=== PATIENT | male | born 1970 | race Caucasian/White ===

== ENCOUNTER 2019-07-25 08:49 | Inpatient (IN) | payer OTHER ==
[2019-07-25 10:31] VITALS: BMI 25.8
[2019-07-25] MEDS ORDERED: PROPOFOL 20 ML ONE ×6 (12:41→17:30)
[2019-07-25] MEDS ORDERED: ONDANSETRON 4 MG/2 ML VIAL ONE (12:41)
[2019-07-25] MEDS ORDERED: MIDAZOLAM HCL 2 MG/2 ML SINGLE DOSE VIAL ONE ×4 (12:41→13:26)
[2019-07-25] MEDS ORDERED: DEXAMETHASONE SOD PHOSPHATE 4 MG/1 ML VIAL ONE (12:41)
[2019-07-25] MEDS ORDERED: KETAMINE HCL 200 MG/20 ML VIAL ONE (12:42)
[2019-07-25] MEDS ORDERED: SUCCINYLCHOLINE CHLORIDE 200 MG/10 ML SYRINGE ONE (13:18)
[2019-07-25] MEDS ORDERED: ROCURONIUM BROMIDE 50 MG/5 ML SYRINGE ONE ×2 (13:18→15:54)
[2019-07-25] MEDS ORDERED: BUPIVACAINE LIPOSOME/PF (EXPAREL) 266 MG/20 ML VIAL ONE (13:23)
[2019-07-25] MEDS ORDERED: BUPIVACAINE HCL/PF 0.5% (5 MG/ML) 30 ML VIAL IJ ONE ×2 (13:24→14:05)
[2019-07-25] MEDS ORDERED: ERTAPENEM SODIUM 1 GM VIAL ONE (13:38)
[2019-07-25] MEDS ORDERED: THROMBIN (BOVINE) 5,000 UNIT VIAL TP ONE ×2 (14:09→16:12)
[2019-07-25] MEDS ORDERED: HEPARIN NA (PORCINE) 5,000 UNITS/ML 1ML VIAL ONE (14:09)
[2019-07-25] MEDS ORDERED: MORPHINE 5 MG/10 ML AMP - FOR COMPOUNDING USE ONLY ONE (14:25)
--- NOTE | 2019-07-25 14:36 | PN ---
Progress Note (short form) - Note Progress Note: 49M s/p L5-S1 posterior lumbar interbody fusion with instrumented postero- lateral arthrodesis POD #0. -Admit to ICU post-op. -Pain control: NO NSAID's; patient received pre-op TLIP block w/Exparel; OK to use CASE TECHNICIAN if needed; transition to oral analgesia post-op. -DVT PPx: -Mechanical only: PANTERA's, SCD's. -Chemical: None. -Incentive spirometry q15 min. -NPO until flatus. -Garcia care; d/c when ambulating. -Post-op Ancef x 3 doses. -PT/OT/Rehab, OOB. -WBAT B/L LE. -No bending, lifting (>5 lbs), or twisting for 9-12 months. -Care per ICU & medical hospitalist teams. -Discharge planning: f/u 7-10 days after rehab discharge at [facility] office; call for appointment; . -Will follow. Thomas Ford MD (Orthopaedic Surgery).
--- NOTE | 2019-07-25 14:46 | OP ---
Operative Note - Note: Operative Date: 07/25/19 Pre-Operative Diagnosis: 1. 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 2. L5-S1 spinal stenosis with neurogenic claudication. 3. L5-S1 axial instability with myofascial pain complex. Severity of illness: 4 Operation: 1. Bilateral laminectomies. 2. Bilateral L5, S1 osteotomies ( facetectomies). 3. L5-S1 discectomy. 4. L5-S1 posterior lumbar interbody fusion. 5. L5-S1 insertion biomechanical device. 6. L5-S1 posterior instrumentation. 7. L5-S1 posterolateral arthrodesis. 8. Bone allograft. 9. Bone autograft. 10. Bone marrow aspiration. 11. Complex wound closure (20cm). Findings: R L5 conjoined nerve root Implants: L5-S1 Cage: 11mm [id number]. Screws: 6.5mm x 40mm screws x 4 Post-Operative Diagnosis: Same as Pre-op Surgeon: Thomas Ford Air Technician: Louie Proctor Anesthesiologist/CLEAN UP HELPER BANQUET: Latonya Barnett Anesthesia: General Specimens Removed: L5-S1 disc Estimated Blood Loss (mls): 300 Drains & Tubes with Location: 1 x superficial HemoVac Blood Volume Replaced (mls): 125 (Cell Saver) Fluid Volume Replaced (mls): 2,000 (Crystalloid) Operative Report Dictated: Yes
[2019-07-25] MEDS ORDERED: ceFAZolin SODIUM 1 GM VIAL IVPB ONE ×2 (15:00→17:35)
[2019-07-25] MEDS ORDERED: fentaNYL CITRATE 250 MCG/5 ML VIAL ONE (15:04)
[2019-07-25] MEDS ORDERED: TRANEXAMIC ACID 1000 MG/10 ML VIAL ONE (15:23)
[2019-07-25] MEDS ORDERED: NEOSTIGMINE METHYLSULFATE 0.5 MG/1 ML - 10 ML MDV ONE (16:23)
[2019-07-25] MEDS ORDERED: GLYCOPYRROLATE 0.2 MG/1 ML VIAL ONE (16:23)
[2019-07-25] MEDS ORDERED: ceFAZolin SODIUM 1 GM VIAL ONE (17:38)
[2019-07-25] MEDS ORDERED: HYDROmorphone HCl 2 MG/ML VIAL ONE (18:06)
[2019-07-25] MEDS ORDERED: ONDANSETRON 4 MG/2 ML VIAL IVPUSH PRN (18:07)
[2019-07-25] MEDS ORDERED: diazePAM CARPU-JECT 10 MG/2 ML DISP.SYRIN IVPUSH PRN (18:07)
[2019-07-25] MEDS: LACTATED RINGERS SOLUTION 1,000 ML IV SCH ×2 (18:15→23:13)
--- NOTE | 2019-07-25 19:47 | SURG ---
Surgery Collar Baster Jumpbasting Note Collar Baster Jumpbasting: Louie Proctor PA-C Date of Service: 07/25/19 Diagnosis: 1. 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 2. L5-S1 spinal stenosis with neurogenic claudication. 3. L5-S1 axial instability with myofascial pain complex. Severity of illness: 4 Procedure: 1. Bilateral laminectomies. 2. Bilateral L5, S1 osteotomies (facetectomies). 3. L5-S1 discectomy. 4. L5-S1 posterior lumbar interbody fusion. 5. L5-S1 insertion biomechanical device. 6. L5-S1 posterior instrumentation. 7. L5-S1 posterolateral arthrodesis. 8. Bone allograft. 9. Bone autograft. 10. Bone marrow aspiration. 11. Complex wound closure (20cm). I was present for the entirety of the operative procedure. For further detail, please refer to operative report. Visit type - Case Type Case Type: Scheduled - New patient This patient is new to me today: Yes Date on this admission: 07/25/19
[2019-07-25] MEDS ORDERED: ACETAMINOPHEN INJECTION 100 ML IVPB ONE (19:59)
[2019-07-25] MEDS: ACETAMINOPHEN 1000 MG/100 ML VIAL (NON FORMULARY) IVPB SCH (20:00)
--- NOTE | 2019-07-25 22:10 | OP ---
DATE OF OPERATION: DATE OF DICTATION: 07/25/2019 SURGEON: Thomas Ford M.D. LEATHER SOFTENER: Mounika Pedroza. PREOPERATIVE DIAGNOSIS: Disk prolapse, L5-S1, with radicular myelopathy and segmental instability. POSTOPERATIVE DIAGNOSIS: Disk prolapse, L5-S1, with radicular myelopathy and segmental instability. OPERATION PERFORMED: 1. Bilateral laminectomy, L5. 2. Partial laminectomy, L4 and S1. 3. Posterior lumbar interbody fusion with cage, L5-S1. 4. Anterior arthrodesis with bone grafting L5-S1. 5. Pedicle screw instrumentation, L5-S1. 6. Posterior lateral arthrodesis, L5-S1. 7. Use of autologous bone graft expanded with allograft and bone marrow aspirate concentrate. 8. Incidental finding of a right-sided conjoined nerve root between L5 and S1. ANESTHESIA: Aicha Ann MD [id number]
[2019-07-25] MEDS: GABAPENTIN 300 MG CAPSULE (FP) PO SCH (23:10)
[2019-07-25] MEDS: CEFAZOLIN 1 GM in DEXTROSE 5%-WATER - 50 ML IVPB SCH (23:11)
[2019-07-26] MEDS: LACTATED RINGERS SOLUTION 1,000 ML IV SCH ×4 (01:40→21:36)
[2019-07-26] MEDS ORDERED: ceFAZolin SODIUM 1 GM VIAL ONE ×3 (06:18→16:25)
[2019-07-26] MEDS ORDERED: DEXTROSE 5%-WATER - 50 ML IVPB ONE ×3 (06:18→16:25)
[2019-07-26] MEDS: ACETAMINOPHEN 1000 MG/100 ML VIAL (NON FORMULARY) IVPB SCH (06:21)
[2019-07-26] MEDS: CEFAZOLIN 1 GM in DEXTROSE 5%-WATER - 50 ML IVPB SCH ×4 (06:22→17:18)
--- NOTE | 2019-07-26 07:43 | PN ---
Progress Note (short form) - Note Progress Note: Anesthesia Post Op Note Pt seen s/p GA for lumbar lami Pt awake alert in NAD, denies nausea/vomiting denies puritis aguilar in situ to ambulate this am pain control acceptable VSS no apparent anesthesia complications Gerhard Santiago.
[2019-07-26 08:58] LABS: HEMATOCRIT 35.3 % (35.4-49); HEMOGLOBIN 12.2 GM/dL (11.7-16.9); MCH 32.6 pg (25.7-33.7); MCHC 34.5 g/dl (32.0-35.9); MEAN CELL VOLUME 94.7 fl (80-96); MEAN PLT VOLUME 8.4 fl (7.5-11.1); PLATELET COUNT 228 K/MM3 (134-434); RBC 3.72 M/mm3 (4.00-5.60); RDW 12.5 % (11.9-15.9); WHITE BLOOD COUNT 16.4 K/mm3 (4.0-10.0)
[2019-07-26 09:42] LABS: BLOOD UREA NITROGEN 18.5 mg/dL (7-18); CALCIUM 8.8 mg/dL (8.5-10.1)
[2019-07-26] MEDS ORDERED: LISINOPRIL 5 MG TABLET (FP) PO SCH (10:00)
[2019-07-26] MEDS: GABAPENTIN 300 MG CAPSULE (FP) PO SCH ×2 (10:23→21:46)
--- NOTE | 2019-07-26 10:54 | PN ---
Progress Note (short form) - Note Progress Note: POD 1, s/p Bilateral L5, S1 Lami/osteotomies/discectomy/fusion. Pt seen and examined. Reports lower back pain radiating into his L thigh (sxs prior to sx), slightly improved with pain regimen. Tolerating PO. Has been oob standing, however reports pain is severe with movement. Garcia in place. Denies cp/sob, n/v/d, motor/sensory deficits. Vital Signs Temp 99.2 F 07/26/19 06:00 Pulse 82 07/26/19 06:00 Resp 20 07/26/19 06:00 BP 102/46 L 07/26/19 06:00 Pulse Ox 96 07/25/19 20:45 Intake & Output 07/25/19 07/25/19 07/26/19 11:59 23:59 11:59 Intake Total 2525 325 Output Total 1450 600 Balance 1075 -275 Weight 175 lb Intake: IV 2400 225 Lactated Ringers Solution 225 1,000 ml @ 75 mls/hr IV ASDIR NOHEMY Rx#:[id number] IVPB 100 Blood Product 125 Output: Urine 1100 600 Garcia 600 Estimated Blood Loss 350 Other: Voiding Method Indwelling Catheter Bowel Movement No Height 5 ft 9 in Body Mass Index (BMI) 25.8 Weight Measurement Method Stated by Patient CBC, BMP 07/26/19 07:10 07/26/19 07:10 Gen: awake, alert, nad Resp: Unlabored on RA Neuro: B/L le 5/5 dorsi/plantarflexion, SILT b/l les. Unable to lift legs antigravity due to pain, however visualized pt standing at edge of bed without issue. Back: Dressing saturated with blood, removed incision c/d/i with mary in place, no active drainage visualized. New 4x4s and tegaderms applied. A/P: 49 y/o M w/ HTN, Back pain/radiculopathy, now POD 1, s/p bilateral L5, S1 Lami/osteotomies/discectomy/fusion. afebrile, slightly hypotensive overnight (systolic 90s) -Pain control with Oxy 5/10mg q4hrs prn, ofirmev 1G q6hrs scheduled, gabapentin 600mg BID -OOB with PT -Garcia to be d/c'ed at 1400 -VS per protocol -Neuro checks per protocol -Keep dressing c/d/i -Reg diet message sent to Dr Ford regarding above
[2019-07-26] MEDS ORDERED: ACETAMINOPHEN 1000 MG/100 ML VIAL (NON FORMULARY) IVPB SCH (12:30)
[2019-07-26] MEDS: oxyCODONE HCL 5 MG TABLET PO PRN ×3 (13:10→21:46)
[2019-07-26] MEDS ORDERED: HYDROmorphone HCL CARPU-JECT 2 MG/1 ML DISP.SYRIN IVPB PRN (14:00)
[2019-07-27] MEDS: oxyCODONE HCL 5 MG TABLET PO PRN ×5 (00:31→21:20)
[2019-07-27] MEDS: LACTATED RINGERS SOLUTION 1,000 ML IV SCH ×2 (02:37→21:22)
[2019-07-27] MEDS ORDERED: KETOROLAC TROMETHAMINE 30 MG/1 ML VIAL IVPUSH ONE (06:30)
--- NOTE | 2019-07-27 08:29 | PN ---
Progress Note (short form) - Note Progress Note: ORTHOPAEDIC SPINE SURGERY POD #2 s/p Bilateral L5, S1 Lami/osteotomies/discectomy/fusion. Pt seen and examined at bedside. States only OOB and able to stand for a short bit (secondary to significant pain related to surgical procedure) He is tolerating PO diet. Aguilar in place. Denies n/v/f/c, cp, palpitations, sob or solis. Denies motor or sensory deficits. Last Vital Signs Temp Pulse Resp BP Pulse Ox 98.8 F 88 20 134/60 92 L 07/27/19 07:00 07/27/19 07:00 07/27/19 07:00 07/27/19 07:00 07/26/19 21:00 PE Gen: awake, alert, nad Resp: Unlabored on RA Neuro: B/L le 5/5 dorsi/plantarflexion, SILT b/l les Back: c/d/i with mary insitu, no hematoma/erythema or warmth (no signs of infection). Problem List - Problems (1) Chronic low back pain Assessment/Plan: A/P: 49 y/o M POD #2 s/p Bilateral L5, S1 Lami/osteotomies/discectomy/fusion. -Pain control with Oxy 5/10mg q4hrs prn, ofirmev 1G q6hrs scheduled, gabapentin 600mg BID -OOB with PT -DC aguilar once OOB and able to ambulate -VS per protocol -Neuro checks per protocol -Reg diet -Dressing changed on rounds -DVT ppx Code(s): M54.5 - LOW BACK PAIN; G89.29 - OTHER CHRONIC PAIN
[2019-07-27] MEDS: GABAPENTIN 300 MG CAPSULE (FP) PO SCH ×2 (09:33→21:21)
[2019-07-27] MEDS: LISINOPRIL 5 MG TABLET (FP) PO SCH (09:34)
--- NOTE | 2019-07-27 18:05 | PATH ---
Surgical Pathology Report Patient Name: DIONIICO MERCADO [facility]. Rec. #: [id number] /Age/Gender: 1970 (Age: 49) / F Account: [id number] Location: U Taken: 07/25/2019 Received: 07/26/2019 Reported: 07/27/2019 Physicians: Thomas Ford M.D. Specimen(s) Received DISC Clinical History Vertebral discs disorder Final Diagnosis DISC, L5-S1, POSTERIOR LUMBAR INTERBODY FUSION: BENIGN INTERVERTEBRAL DISC TISSUE AND BONE. Electronically Signed Jeannette Mello M.D. Gross Description Received in formalin labeled "disc" is a 4.0 x 2.5 x 0.4 cm aggregate of jiménez fragments of fibrocartilaginous tissue. A credit representative portion is submitted in one cassette. /07/26/2019 [facility]07/26/2019
[2019-07-27] MEDS ORDERED: KETOROLAC TROMETHAMINE 30 MG/1 ML VIAL IVPB ONE (18:30)
--- NOTE | 2019-07-27 18:47 | PN ---
Progress Note (short form) - Note Progress Note: 49M s/p L5-S1 posterior lumbar interbody fusion with instrumented postero- lateral arthrodesis POD #2. Pain well controlled; Original left leg pain completely resolved. No acute events overnight. Pt. denies overnight history of headaches, chest pain, shortness of breath, nausea, vomiting, chills, & sweats. (+) Garcia; (-) Flatus; (-) BM. Walked in hallway. All labs and vitals reviewed. PE: AAO x 3, NAD. T/L-Spine: Incision, dressing C/D/I. B/L LE M: L2-S1 intact, at baseline. B/L LE S: L2-S1 2/2. 49M s/p L5-S1 posterior lumbar interbody fusion with instrumented postero- lateral arthrodesis POD #2. -Admit to ICU post-op. -Pain control: NO NSAID's. -DVT PPx: -Mechanical only: PANTERA's, SCD's. -Chemical: None. -Incentive spirometry q15 min. -NPO until flatus. -Garcia care; d/c when ambulating. -PT/OT/Rehab, OOB. -WBAT B/L LE. -No bending, lifting (>5 lbs), or twisting for 9-12 months. -Care per medical hospitalist teams. -f/u pain management rec's: Dr. John Marx (case discussed). -Discharge planning: f/[facility] 7[facility]10 [facility]; call for appointment; . -Will follow. Thomas Ford MD (Orthopaedic Surgery).
[2019-07-27] MEDS ORDERED: PT OWN MED DRAWER 7, Y5N ONE (20:03)
[2019-07-28] MEDS ORDERED: KETOROLAC TROMETHAMINE 30 MG/1 ML VIAL IVPB ONE
[2019-07-28] MEDS: oxyCODONE HCL 5 MG TABLET PO PRN ×3 (05:51→15:11)
[2019-07-28] MEDS: GABAPENTIN 300 MG CAPSULE (FP) PO SCH ×2 (09:38→21:27)
[2019-07-28] MEDS: LISINOPRIL 5 MG TABLET (FP) PO SCH (09:39)
--- NOTE | 2019-07-28 11:11 | PN ---
Progress Note (short form) - Note Progress Note: 49M s/p L5-S1 posterior lumbar interbody fusion with instrumented postero- lateral arthrodesis POD #2. Pt. reports (+) incisional pain. Pt. denies overnight history of headaches, chest pain, shortness of breath, nausea, vomiting, chills, & sweats. (+) Garcia; (+) Minimal flatus; (-) BM. (+) Worked with PT team. All labs and vitals reviewed. PE: AAO x 3, NAD. L-Spine: Incision, dressing C/D/I. B/L LE NV status at baseline. 49M s/p L5-S1 posterior lumbar interbody fusion with instrumented postero- lateral arthrodesis POD #2. -Pain control: Oxycodone 10mg PO q6h PRN pain + Oxycontin 10mg PO BID x 3 days; NO NSAID's. -DVT PPx: -Mechanical only: PANTERA's, SCD's. -Chemical: None. -Incentive spirometry q15 min. -Clear liquid diet. -Relistor x 1 today. -d/c Garcia catheter; f/u TOV (8 hours max). -PT/OT/Rehab, OOB. -WBAT B/L LE. -No bending, lifting (>5 lbs), or twisting for 9-12 months. -Care per medical hospitalist team. -Discharge planning: f/u 7-10 days after rehab discharge at [facility] office; call for appointment; . -Will follow. Demetrius Ford MD (Orthopaedic Surgery).
[2019-07-28] MEDS: oxyCODONE HCL 10 MG SUSTAINED ACTING TABLET PO SCH ×2 (12:16→21:28)
[2019-07-28] MEDS ORDERED: PT OWN MED DRAWER 7, Y5N ONE (15:02)
[2019-07-28] MEDS: Methylnaltrexone Bromide 12 MG/0.6 ML KIT SQ SCH (15:12)
[2019-07-28] MEDS: ACETAMINOPHEN 325 MG TABLET (FP) PO PRN (17:36)
[2019-07-29] MEDS: LACTATED RINGERS SOLUTION 1,000 ML IV SCH (00:02)
[2019-07-29] MEDS: oxyCODONE HCL 5 MG TABLET PO PRN ×4 (00:04→20:53)
[2019-07-29] MEDS: ACETAMINOPHEN 325 MG TABLET (FP) PO PRN (03:57)
[2019-07-29] MEDS: GABAPENTIN 300 MG CAPSULE (FP) PO SCH ×2 (09:10→21:54)
[2019-07-29] MEDS: oxyCODONE HCL 10 MG SUSTAINED ACTING TABLET PO SCH (09:10)
[2019-07-29] MEDS: LISINOPRIL 5 MG TABLET (FP) PO SCH (09:10)
[2019-07-29] MEDS ORDERED: PT OWN MED DRAWER 7, Y5N ONE (09:31)
[2019-07-29] MEDS: Methylnaltrexone Bromide 12 MG/0.6 ML KIT SQ SCH (10:13)
--- NOTE | 2019-07-29 10:23 | PN ---
Progress Note (short form) - Note Progress Note: POD 4, s/p Bilateral L5, S1 Lami/osteotomies/discectomy/fusion. Pt seen, refused exam. Pt very upset this morning, reports his pain is not controlled. Shouting about aguilar placement last night, states it was traumatic and painful. Continues to have difficulty walking and standing. Refusing to discuss discharge or rehab placement. Vital Signs Temp 98.6 F 07/29/19 07:58 Pulse 68 07/29/19 07:58 Resp 20 07/29/19 07:58 BP 109/72 07/29/19 07:58 Pulse Ox 95 07/28/19 21:00 Intake & Output 07/28/19 07/28/19 07/29/19 11:59 23:59 11:59 Intake Total 300 Output Total 200 290 700 Balance -200 10 -700 Intake: Oral 300 Output: Urine 200 290 700 Aguilar 200 290 700 Other: Voiding Method Indwelling Catheter Indwelling Catheter CBC, BMP 07/26/19 07:10 07/26/19 07:10 PE: Pt refused neuro exam, visualized pt standing and ambulating next to bed using cane Allowed dressing change, wound c/d/i with mary in place, no erythema or drainage. New 4x4s and tegaderms applied. A/P: 49 y/o M w/ HTN, Back pain/radiculopathy, now POD 4, s/p bilateral L5, S1 Lami/osteotomies/discectomy/fusion. Febrile yesterday, tmax 102.1, last labs 07/26 Aguilar reinserted yesterday for retention (per pt no prior issues with urinary retention or known prostate disease) -Flomax ordered for urinary retention, consult pending for Urology -Pain control -OOB with PT -VS per protocol -Neuro checks per protocol -Keep dressing c/d/i -Reg diet above d/w attending Dr Ford
[2019-07-29] MEDS ORDERED: oxyCODONE HCL 5 MG TABLET PO PRN (10:37)
[2019-07-29] MEDS: TAMSULOSIN HCL 0.4 MG CAP PO SCH (11:56)
[2019-07-29 12:10] LABS: BASO % 0.6 % (0-2.0); EOS % 2.4 % (0-4.5); HEMATOCRIT 33.6 % (35.4-49); HEMOGLOBIN 11.5 GM/dL (11.7-16.9); LYMPH % 16.4 % (8-40); MCH 32.5 pg (25.7-33.7); MCHC 34.1 g/dl (32.0-35.9); MEAN CELL VOLUME 95.3 fl (80-96); MEAN PLT VOLUME 8.3 fl (7.5-11.1); MONO % 9.6 % (3.8-10.2); PLATELET COUNT 247 K/MM3 (134-434); RBC 3.53 M/mm3 (4.00-5.60); RDW 12.2 % (11.9-15.9); WHITE BLOOD COUNT 11.3 K/mm3 (4.0-10.0)
--- NOTE | 2019-07-29 17:19 | PN ---
Progress Note (short form) - Note Progress Note: C/O incisional; pain Apyrexial Wound inspection Pristine dry Neuro At baseline Walking in the hallway Urinary retension Catheter in situ Awaiting urology consult ASSESS Doing well Problems Urinary retension Incisional pain PLAN Augmenten Mobilize Urology assessment pain mx
[2019-07-29] MEDS: AMOX TR/POT CLAV 875MG/125MG TABLETS (FP) PO SCH (17:49)
[2019-07-30] MEDS: oxyCODONE HCL 5 MG TABLET PO PRN ×5 (00:21→17:38)
[2019-07-30] MEDS: ACETAMINOPHEN 325 MG TABLET (FP) PO PRN (06:42)
--- NOTE | 2019-07-30 08:31 | PN ---
Progress Note (short form) - Note Progress Note: POD#5 C/O Right radiculopathic pain LE minimal LBP No weakness No dysesthesia Ambulating Difficulty due to pain Vitals Stable CVS Stable\ RESP AE equal No adventitious sounds ABD Soft Garcia in situ Awaiting Urology consult Neuro At baseline Mskeletal Bandage dry Mild local tenderness ASSESS Post L5 S1 PLIF Intraop op tension on conjoint nerve root PLAN CT scan lspine to evaluate canal
[2019-07-30] MEDS ORDERED: PT OWN MED DRAWER 7, Y5N ONE (08:35)
[2019-07-30] MEDS: AMOX TR/POT CLAV 875MG/125MG TABLETS (FP) PO SCH ×2 (08:50→17:39)
[2019-07-30] MEDS: TAMSULOSIN HCL 0.4 MG CAP PO SCH (08:50)
[2019-07-30] MEDS: GABAPENTIN 300 MG CAPSULE (FP) PO SCH ×2 (09:01→21:50)
[2019-07-30] MEDS: LISINOPRIL 5 MG TABLET (FP) PO SCH (09:01)
[2019-07-30] MEDS: Methylnaltrexone Bromide 12 MG/0.6 ML KIT SQ SCH (13:30)
[2019-07-30 14:51] LABS: EPI CELLS 0.7 /HPF (0-5/HPF); HYALINE CASTS 4 /lpf (0-8); URINE APPEARANCE CLEAR; URINE BACTERIA 1.5 /hpf (NEGATIVE); URINE BILIRUBIN NEGATIVE (NEGATIVE); URINE COLOR YELLOW; URINE GLUCOSE (UA) NEGATIVE (NEGATIVE); URINE KETONE TRACE (NEGATIVE); URINE LEUK ESTERASE TRACE (NEGATIVE); URINE NITRITE NEGATIVE (NEGATIVE); URINE PROTEIN 1+ (NEGATIVE); URINE RBC 93 /hpf (0-4); URINE WBC 4 /hpf (0-5)
[2019-07-30] MEDS: LACTATED RINGERS SOLUTION 1,000 ML IV SCH (18:40)
[2019-07-31] MEDS: oxyCODONE HCL 5 MG TABLET PO PRN ×6 (02:21→23:12)
[2019-07-31] MEDS ORDERED: PT OWN MED DRAWER 7, Y5N ONE ×2 (08:21→13:09)
[2019-07-31] MEDS: AMOX TR/POT CLAV 875MG/125MG TABLETS (FP) PO SCH ×2 (08:45→18:04)
[2019-07-31] MEDS: TAMSULOSIN HCL 0.4 MG CAP PO SCH (08:45)
[2019-07-31] MEDS: LISINOPRIL 5 MG TABLET (FP) PO SCH (09:15)
[2019-07-31] MEDS: GABAPENTIN 300 MG CAPSULE (FP) PO SCH ×2 (09:15→21:32)
[2019-07-31] MEDS: Methylnaltrexone Bromide 12 MG/0.6 ML KIT SQ SCH (12:48)
[2019-08-01] MEDS: LACTATED RINGERS SOLUTION 1,000 ML IV SCH (02:19)
[2019-08-01] MEDS: oxyCODONE HCL 5 MG TABLET PO PRN ×5 (03:30→21:00)
[2019-08-01] MEDS: TAMSULOSIN HCL 0.4 MG CAP PO SCH (07:33)
[2019-08-01] MEDS: AMOX TR/POT CLAV 875MG/125MG TABLETS (FP) PO SCH (07:33)
[2019-08-01] MEDS ORDERED: PT OWN MED DRAWER 7, Y5N ONE (10:07)
[2019-08-01] MEDS: GABAPENTIN 300 MG CAPSULE (FP) PO SCH ×2 (10:08→21:00)
[2019-08-01] MEDS: Methylnaltrexone Bromide 12 MG/0.6 ML KIT SQ SCH (10:09)
[2019-08-01] MEDS: LISINOPRIL 5 MG TABLET (FP) PO SCH (10:09)
[2019-08-01] MEDS ORDERED: oxyCODONE HCL 5 MG TABLET PO PRN (12:55)
[2019-08-01] MEDS: ACETAMINOPHEN 325 MG TABLET (FP) PO PRN (15:50)
--- NOTE | 2019-08-01 20:49 | PN ---
Progress Note (short form) - Note Progress Note: 49M s/p L5-S1 posterior lumbar interbody fusion with instrumented postero- lateral arthrodesis POD #7. Pain well controlled; Original left leg pain completely resolved. Pt. now reports RLE radiculopathic pain in L5 pattern distribution. Pt. denies overnight history of headaches, chest pain, shortness of breath, nausea, vomiting, chills, & sweats. (+) Voiding; (+) Flatus; (-) BM. Walked in hallway. All labs and vitals reviewed. PE: AAO x 3, NAD. T/L-Spine: Incision, dressing w/serosanguinous discharge. B/L LE M: L2-S1 intact, at baseline. B/L LE S: L2-L4, S1 2/2. LLE 2/2. RLE 1/2. CT L-Spine: L5-S1 hardware intact & in place. Slight medial breach of bilateral L5 screws. 49M s/p L5-S1 posterior lumbar interbody fusion with instrumented postero- lateral arthrodesis POD #7. -NPO, IVF. -Plan to return to OR today for I&D lumbar spine with possible revision of hardware. -Pain control: NO NSAID's. -DVT PPx: -Mechanical only: PANTERA's, SCD's. -Chemical: None. -Incentive spirometry q15 min. -PT/OT/Rehab, OOB. -WBAT B/L LE. -No bending, lifting (>5 lbs), or twisting for 9-12 months. -Care per medical hospitalist & urology teams. -Discharge planning: f/u 7-10 days after rehab discharge at [facility] office; call for appointment; . -Will follow. Thomas Ford MD (Orthopaedic Surgery).
[2019-08-01] MEDS ORDERED: ONDANSETRON 4 MG/2 ML VIAL IVPUSH PRN ×2 (22:26→22:49)
[2019-08-01] MEDS ORDERED: PROMETHAZINE HCL 25 MG/1 ML VIAL IVPUSH PRN (22:26)
[2019-08-01] MEDS ORDERED: LACTATED RINGERS SOLUTION 1,000 ML IV SCH (22:30)
[2019-08-01] MEDS ORDERED: MIDAZOLAM HCL 2 MG/2 ML SINGLE DOSE VIAL ONE (22:37)
[2019-08-01] MEDS ORDERED: FLUMAZENIL 0.5 MG/5 ML VIAL ONE (22:37)
[2019-08-01] MEDS ORDERED: ROCURONIUM BROMIDE 50 MG/5 ML SYRINGE ONE (22:39)
[2019-08-01] MEDS ORDERED: LIDOCAINE HCL/PF 2% SDV 5ML VIAL ONE (22:47)
[2019-08-01] MEDS ORDERED: DEXAMETHASONE SOD PHOSPHATE 4 MG/1 ML VIAL IVPUSH PRN (22:49)
[2019-08-01] MEDS ORDERED: PROMETHAZINE HCL 25 MG/1 ML VIAL IVPB PRN (22:49)
[2019-08-01] MEDS ORDERED: THROMBIN (BOVINE) 5,000 UNIT VIAL TP ONE (22:52)
[2019-08-01] MEDS ORDERED: HYDROmorphone *PCA* 10MG/50ML DISP.SYRIN PCA SCH (23:00)
[2019-08-01] MEDS ORDERED: SODIUM CHLORIDE 0.9% P/F 10 ML VIAL IJ ONE (23:15)
[2019-08-01] MEDS ORDERED: ceFAZolin SODIUM 1 GM VIAL ONE (23:15)
[2019-08-01] MEDS ORDERED: ONDANSETRON 4 MG/2 ML VIAL ONE (23:17)
[2019-08-01] MEDS ORDERED: ceFAZolin SODIUM 1 GM VIAL IVPB ONE (23:17)
[2019-08-01] MEDS ORDERED: HYDROmorphone *PCA* 10MG/50ML DISP.SYRIN ONE (23:17)
[2019-08-01] MEDS ORDERED: DEXAMETHASONE SOD PHOSPHATE 4 MG/1 ML VIAL ONE (23:17)
[2019-08-01] MEDS ORDERED: VANCOMYCIN 1,000 MG VIAL (RESTRICTED TO ID ONLY) ONE (23:18)
[2019-08-01] MEDS ORDERED: TRANEXAMIC ACID 1000 MG/10 ML VIAL ONE (23:24)
[2019-08-01] MEDS ORDERED: VANCOMYCIN 1,000 MG VIAL (RESTRICTED TO ID ONLY) IVPB ONE (23:30)
[2019-08-01] MEDS ORDERED: PROPOFOL 20 ML ONE ×4 (23:34)
[2019-08-01] MEDS ORDERED: NEOSTIGMINE METHYLSULFATE 0.5 MG/1 ML - 10 ML MDV ONE (23:57)
[2019-08-02] MEDS ORDERED: ACETAMINOPHEN INJECTION 100 ML IVPB ONE (00:40)
--- NOTE | 2019-08-02 01:12 | OP ---
Operative Note - Note: Operative Date: 08/02/19 Pre-Operative Diagnosis: 1. Lumbar spine retained hematoma. 2. Symptomatic hardware lumbar spine Operation: 1. I&D lumbar spine with evacuation of retained hematoma. 2. Removal of hardware and replacement (bilateral L5 screws, bilateral rods). 3. Reinstrumentation bilateral L5 screws, rods. Findings: 1. Retained hematoma 2. No sign of infection 3. Improved B/L LE EMG/NCV's after replacement of bilateral L5 screws Post-Operative Diagnosis: Same as Pre-op Surgeon: Thomas Ford Fire Services Plumber: Demetrius Ford Anesthesiologist/DRAWING KILN OPERATOR: Sin Nicholas Anesthesia: General Specimens Removed: Lumbar spine hardware Estimated Blood Loss (mls): 100 Drains & Tubes with Location: 1 x deep Hematoma Fluid Volume Replaced (mls): 1,000 (Crystalloid) Operative Report Dictated: Yes
--- NOTE | 2019-08-02 01:14 | PN ---
Progress Note (short form) - Note Progress Note: 49M s/p L5-S1 posterior lumbar interbody fusion with instrumented postero- lateral arthrodesis POD #7 now s/p evacuation of lumbar spine hematoma, removal of symptomatic hardware, & replacement of bilateral L5 screws POD #0. -Admit to ICU post-op. -Pain control: NO NSAID's; OK to use LOADER MACHINE if needed; transition to oral analgesia post-op. -DVT PPx: -Mechanical only: PANTERA's, SCD's. -Chemical: None. -Incentive spirometry q15 min. -NPO until flatus. -Garcia care; d/c when ambulating. -Post-op Ancef x 3 doses. -PT/OT/Rehab, OOB. -WBAT B/L LE. -No bending, lifting (>5 lbs), or twisting for 9-12 months. -Care per ICU & medical hospitalist teams. -Discharge planning: f/u 7-10 days [facility]; call for appointment; . -Will follow. Thomas Ford MD (Orthopaedic Surgery).
[2019-08-02] MEDS ORDERED: HYDROmorphone *PCA* 10MG/50ML DISP.SYRIN PCA ONE (01:20)
[2019-08-02] MEDS ORDERED: DEXAMETHASONE SOD PHOSPHATE 4 MG/1 ML VIAL IVPUSH PRN (01:26)
[2019-08-02] MEDS ORDERED: HYDROmorphone *PCA* 10MG/50ML DISP.SYRIN PCA SCH (01:26)
[2019-08-02] MEDS ORDERED: PROMETHAZINE HCL 25 MG/1 ML VIAL IVPUSH PRN (01:26)
[2019-08-02] MEDS ORDERED: LACTATED RINGERS SOLUTION 1,000 ML IV SCH (01:26)
[2019-08-02] MEDS ORDERED: oxyCODONE HCL 5 MG TABLET PO PRN (01:26)
[2019-08-02] MEDS ORDERED: ONDANSETRON 4 MG/2 ML VIAL IVPUSH PRN ×3 (01:26)
[2019-08-02] MEDS ORDERED: PROMETHAZINE HCL 25 MG/1 ML VIAL IVPB PRN (01:26)
[2019-08-02] MEDS: CEFAZOLIN 2 GM/D5W 2 GM/50 ML ML IVPB SCH ×2 (02:59→10:23)
[2019-08-02] MEDS ORDERED: ceFAZolin 2 GRAM PREMIX BAG IVPB SCH (06:00)
[2019-08-02] MEDS: Methylnaltrexone Bromide 12 MG/0.6 ML KIT SQ SCH (10:23)
[2019-08-02] MEDS ORDERED: PT OWN MED DRAWER 7, Y5N ONE (10:30)
[2019-08-02] MEDS: LISINOPRIL 5 MG TABLET (FP) PO SCH (10:30)
[2019-08-02] MEDS: oxyCODONE HCL 5 MG TABLET PO PRN ×4 (10:30→22:30)
[2019-08-02] MEDS: GABAPENTIN 300 MG CAPSULE (FP) PO SCH ×2 (10:31→21:50)
[2019-08-02] MEDS: TAMSULOSIN HCL 0.4 MG CAP PO SCH (10:31)
--- NOTE | 2019-08-02 10:47 | OP ---
DATE OF OPERATION: DATE OF DICTATION: 08/02/2019 SURGEON: Thomas Ford MD GENERAL UTILITY MACHINE OPERATOR: Demetrius Ford MD PREOPERATIVE DIAGNOSIS: Retained hematoma, lumbar spine with questionable placement of hardware, i.e. L5 pedicle screws appear to be malpositioned medially as per CT scan and onset of recent new right L5-S1 radiculopathic pain. POSTOPERATIVE DIAGNOSIS: Retained hematoma, lumbar spine with questionable placement of hardware, i.e. L5 pedicle screws appear to be malpositioned medially as per CT scan and onset of recent new right L5-S1 radiculopathic pain. OPERATIONS PERFORMED: 1. Incision and drainage. 2. Removal of L5 screws, repositioning of L5 screws, and revision instrumentation. ANESTHESIA: General. ANTIBIOTICS GIVEN: 2 g of Kefzol, 1 g vancomycin, 1 g vancomycin placed as a power in the deep subfascial layer of the wound and in the superficial layer of the wound. BLOOD LOSS: Approximately 200 mL. OPERATION DETAILS: Patient correctly identified. Brought to the operating room. Lumbar spine was prepped and draped in the routine manner with Betadine scrub solution, wiped off with alcohol, DuraPrep applied. The problem we encountered here was persistent drainage of the wound in presence of a gentleman with ongoing, persistent, right-sided radiculopathic leg ache. Patient is motor and sensory fully intact, but radiculopathic pain necessitated a CT scan postoperatively. This revealed the presence of the screws in situ. The concern was the possibility of cutting of a corner in the recess of both the left and right hand screws, and we elected at the time of incision and drainage and washout of this hematoma that I would go ahead and reposition the screws accordingly. Midline incision all the sutures were removed. The tissues were healthy. A large, retained hematoma of approximately 100 mL was noted. Dark blood in the subfascial space. Neuromonitoring was performed throughout the procedure. The neuromonitoring revealed the presence of marked improvement following this operation. The caps, rods were removed on both sides. The pedicle screw of L5 was removed under lateral fluoroscopic guidance, and using anatomic guidelines, the tissues were opened appropriately, and brand new drill holes were applied. The drill was placed lateral to the superior facet at this juncture of the superior facet and the transverse process. A ball tip feeler palpated the bone bed and found to be completely 360-degree solid bone throughout the pedicles both left and right hand side. Size 40 x 6.5 new screws were placed. A left-sided 45-mm screw placed and a right-sided 15-mm katherine placed. The rods were contoured, appropriately tightened. Prior to katherine insertion, the screws were subjected to electrophoretic stimulation and found to be at 20 mA, well above the safe zone. Once the appropriate caps were tightened, the rods now positioned well. The tissues were thoroughly lavaged again with saline. The closure was as follows: Fascia 1 Vicryl, subcutaneous 1 and 2-0 Vicryl, skin mary. Drainage 1/ Hemovac in the subfascial plane x1. Vancomycin powder was placed on the subfascial plane and in the superficial tissues as well. No complications. A bulky dressing applied. MD HANNA Egan/[id number]
--- NOTE | 2019-08-02 13:17 | PN ---
Progress Note (short form) - Note Progress Note: 49F POD 1 s/p drainage lumbar hematoma, removal of hardware, replacement of screws under GA-ETT. Pt states that pain is moderately controlled and denies any anesthetic complications. Continue current regimen.
[2019-08-02] MEDS: AMOX TR/POT CLAV 875MG/125MG TABLETS (FP) PO SCH ×2 (13:34→21:50)
--- NOTE | 2019-08-02 18:13 | PN ---
Progress Note (short form) - Note Progress Note: 49M s/p L5-S1 posterior lumbar interbody fusion with instrumented postero- lateral arthrodesis POD #8, I&D retained wound hematoma with revision of hardware POD #0. Pt. reports (+) incisional pain. Total resolution of RLE radiculopathy. Pt. denies overnight history of headaches, chest pain, shortness of breath, nausea, vomiting, chills, & sweats. (+) Garcia; (-) Flatus; (-) BM. (+) Walked in room and hallway today. All labs and vitals reviewed. PE: AAO x 3, NAD. L-Spine: Incision, dressing C/D/I. B/L LE NV status at baseline. 49M s/p L5-S1 posterior lumbar interbody fusion with instrumented postero- lateral arthrodesis POD #8, I&D retained wound hematoma with revision of hardware POD #0. -Pain control: NO NSAID's; OK to use SORTING MACHINE OPERATOR if needed; transition to oral analgesia post-op. -DVT PPx: -Mechanical only: PANTERA's, SCD's. -Chemical: None. -Incentive spirometry q15 min. -Diet as tolerated. -Garcia care; d/c at midnight; f/u TOV (8 hours max). -Post-op Ancef x 3 doses. -PT/OT/Rehab, OOB. -WBAT B/L LE. -No bending, lifting (>5 lbs), or twisting for 9-12 months. -Care per ICU & medical hospitalist teams. -Discharge planning: f/u 7-10 days [facility]; call for appointment; . -Will follow. Thomas Ford MD (Orthopaedic Surgery).
[2019-08-02] MEDS: ACETAMINOPHEN 325 MG TABLET (FP) PO PRN (18:45)
[2019-08-03] MEDS: oxyCODONE HCL 5 MG TABLET PO PRN ×3 (02:30→11:06)
--- NOTE | 2019-08-03 09:28 | PN ---
Progress Note (short form) - Note Progress Note: Ortho/spine surgery: PT with complaints of back pain. Tolerating a diet. States that he is voiding without difficulty. Vital Signs Period Temp Pulse Resp BP Sys/Ernandez Pulse Ox Last 24 Hr 98.2 F-100.3 F 84-105 20-20 87-110/50-74 99-99 Voidin/260ml SHERLYN: removed yesterday after being pulled back. GEN: Alert/moving side to side. Back: dressing c/d/i. 4x4 gauze and ioban A/p: 49 yo male s/p L5-S1 PLIF 07/25 and POD#2 evacuation of hematoma and repositioning of L5 screw Pt awaiting bowel movement Continue oob/ambulate with PT DVT ppx with ambulation /SCDs Relistor to help with constipation from narcotics. Added colace. He is tolerating a diet, passing flatus, awaiting BM low grade temp, Incentive spirometer 10 times her hour. D/w / Logan
[2019-08-03] MEDS: TAMSULOSIN HCL 0.4 MG CAP PO SCH (10:19)
[2019-08-03] MEDS: Methylnaltrexone Bromide 12 MG/0.6 ML KIT SQ SCH (10:19)
[2019-08-03] MEDS: LISINOPRIL 5 MG TABLET (FP) PO SCH (10:19)
[2019-08-03] MEDS: GABAPENTIN 300 MG CAPSULE (FP) PO SCH (10:19)
[2019-08-03] MEDS: AMOX TR/POT CLAV 875MG/125MG TABLETS (FP) PO SCH ×2 (10:21→17:36)
[2019-08-03] MEDS ORDERED: PT OWN MED DRAWER 7, Y5N ONE (10:27)
--- NOTE | 2019-08-03 13:19 | PN ---
Progress Note (short form) - Note Progress Note: Anesthesia/ postop pain management follow up 49 y/o M on ELECTRONIC DEVICE REPAIRER for postop pain management. Walking in the hallway, ELECTRONIC DEVICE REPAIRER was discontinued yesterday afternoon.
[2019-08-03] MEDS ORDERED: DOCUSATE SODIUM 100 MG CAPSULE (FP) PO SCH (14:00)
[2019-08-03] MEDS: ACETAMINOPHEN 325 MG TABLET (FP) PO PRN (14:45)
[2019-08-03 15:58] VITALS: BP 88/43; PULSE 92; TEMP 99.3
--- NOTE | 2019-08-03 22:37 | PN ---
Progress Note (short form) - Note Progress Note: 49M s/p L5-S1 posterior lumbar interbody fusion with instrumented postero- lateral arthrodesis POD #8, I&D retained wound hematoma with revision of hardware POD #2. All labs and vitals reviewed. (+) Independent walking in hallway. Patient randomly, incidentally encountered at hospital entrance. As per security , patient is leaving the hospital against medical advice (AMA). Sister is picking him up. This is against the advice of myself and the consulting medical hospitalist team. I have encouraged Pal to see me in the office within the next 7-10 days for routine aftercare. Pal, however, repeatedly expresses discontent, will not answer my routine medical assessment questions, and continuously threatens legal action. Despite this combative behavior, I have explained that his post-operative back pain is normal for this time point following his surgery. His early return to independent function is reflective of the fact that he is recovering well. His orthopaedic/spine problem is under control. I have tried to discuss recommended aftercare, but Pal refuses to listen. -Pain control: NO NSAID's; oral meds. -DVT PPx: -Mechanical only: PANTERA's, SCD's. -Chemical: None. -Incentive spirometry q15 min. -Diet as tolerated. -PT/OT/Rehab, OOB. -WBAT B/L LE. -No bending, lifting (>5 lbs), or twisting for 9-12 months. -Care per medical hospitalist teams. -Discharge planning: f/u 7-10 days after rehab discharge at [facility] office; call for appointment; . -Will follow. Thomas Ford MD (Orthopaedic Surgery).
== END 2019-08-03 18:30 | disposition left against medical advice (07) | DRG 304 ==
LOC: EDSEX 09:25 → JSAMEDAYSX 09:25 → J8W 21:01
PROVIDERS: ADMIT Orthopaedic Surgery Orthopaedic Surgery of the Spine; ATTEND Orthopaedic Surgery Orthopaedic Surgery of the Spine
PROC: 0SG3071 Fusion of Lumbosacral Joint with Autologous Tissue Substitute, Posterior Approach, Posterior Column, Open Approach (ICD-10-PCS; 2019-07-25)
PROC: 0SB40ZZ Excision of Lumbosacral Disc, Open Approach (ICD-10-PCS; 2019-07-25)
PROC: 07DR3ZZ Extraction of Iliac Bone Marrow, Percutaneous Approach (ICD-10-PCS; 2019-07-25)
PROC: 00NY0ZZ Release Lumbar Spinal Cord, Open Approach (ICD-10-PCS; 2019-07-25)
PROC: 0SG30AJ Fusion of Lumbosacral Joint with Interbody Fusion Device, Posterior Approach, Anterior Column, Open Approach (ICD-10-PCS; principal; 2019-07-25 11:00)
PROC: 0SP004Z Removal of Internal Fixation Device from Lumbar Vertebral Joint, Open Approach (ICD-10-PCS; 2019-08-02)
PROC: 0QH004Z Insertion of Internal Fixation Device into Lumbar Vertebra, Open Approach (ICD-10-PCS; 2019-08-02)
PROC: 0S9 Lower Joints, Drainage (ICD-10-PCS; 2019-08-02)
PROC: B01BZZZ Fluoroscopy of Spinal Cord (ICD-10-PCS; 2019-08-02)
PROC: 4A1004G Monitoring of Central Nervous Electrical Activity, Intraoperative, Open Approach (ICD-10-PCS; 2019-08-02)
DX: M51.27 Other intervertebral disc displacement, lumbosacral region (principal); M53.2X7 Spinal instabilities, lumbosacral region; I97.621 Postprocedural hematoma of a circulatory system organ or structure following other procedure; Y83.9 Surgical procedure, unspecified as the cause of abnormal reaction of the patient, or of later complication, without mention of misadventure at the time of the procedure; I10 Essential (primary) hypertension; R33.9 Retention of urine, unspecified; I95.9 Hypotension, unspecified
CPT/HCPCS: 36415; 72131-TC; 76000-TC-FY; 80048; 81003; 85025; 85027; 86850; 86900; 86901; 87086; 88304-TC; 94760; 97116-GP; 97162-GP; J0131; J1644